=== PATIENT | male | born 1995 | race Caucasian/White ===

== ENCOUNTER 2017-12-10 02:37 | Emergency (ER) | payer MEDICAID ==
[2017-12-10] MEDS ORDERED: Ondansetron 4 MG Tab.DIS PO ONE (03:11)
[2017-12-10] MEDS ORDERED: Ketorolac 60 MG/2 ML SDV IM ONE (03:12)
--- NOTE | 2017-12-10 03:47 | EDM.PDOC ---
ED HPI GENERAL MEDICAL PROBLEM - General Chief Complaint: Drug or Alcohol Abuse Stated Complaint: [place] Time Seen by Provider: 12/10/17 03:20 Source of Information: Reports: Patient, EMS, RN History Limitations: Reports: Intoxication - History of Present Illness INITIAL COMMENTS - FREE TEXT/NARRATIVE: 22 yo male while intoxicated fell down some stairs hitting head. Was mumbling initially when his girlfriend caught up to him at the bottom of the stairs. EMS transported with stable vitals. Emesis x 1 on arrival here in the ER. Complains also of dental pain. Is on no meds. Self-limited bloody nose noted by EMS, as well as a forehead contusion. LOC is not clear. Onset: Today Onset Date: 12/10/17 Onset Time: 02:30 Duration: Minutes:, Improving Location: Reports: Head, Face Quality: Reports: Ache Severity: Moderate Improves with: Reports: Other (? time) Worsens with: Reports: None Context: Reports: Trauma Associated Symptoms: Reports: Nausea/Vomiting. 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: Reports: Other (see below) (none) denies pain Pain Score (Numeric/FACES): 0 teeth pain Pain Score (Numeric/FACES): 6 - Related Data Allergies Allergy/AdvReac Type Severity Reaction Status Date / Time hydrocodone Allergy Cannot Verified 12/10/17 02:48 Remember Home Meds: Home Meds Amoxicillin 875 mg PO BID #14 tab 12/10/17 [Rx] Past Medical History Gastrointestinal History: Reports: Chronic Diarrhea Neurological History: Reports: Concussion Social & Family History - Tobacco Use Smoking Status *Q: Never Smoker - Caffeine Use Caffeine Use: Reports: Soda - Recreational Drug Use Recreational Drug Use: Yes Drug Use in Last 12 Months: Yes Recreational Drug Type: Reports: Xanax Recreational Drug Use Frequency: Daily ED ROS GENERAL - Review of Systems Review Of Systems: See Below Constitutional: Reports: No Symptoms HEENT: Reports: Nosebleed (resolved on arrival.), Other (Bad tooth on R mandible ) Respiratory: Reports: No Symptoms Cardiovascular: Reports: No Symptoms GI/Abdominal: Reports: Nausea, Vomiting (x 1) : Reports: No Symptoms Musculoskeletal: Reports: Other (R cheek bone numb, throb over R eyebrow) Skin: Reports: No Symptoms Neurological: Reports: Confusion (Doesn't remember falling, otherwise is fully alert.), Paresthesia (R cheek area). Denies: Dizziness, Headache, Seizure, Tremors, Trouble Speaking, Weakness, Change in Speech Psychiatric: Reports: No Symptoms ED EXAM, HEAD INJURY - Physical Exam Exam: See Below Exam Limited By: No Limitations General Appearance: Alert, WD/WN, No Apparent Distress Head: Facial Abrasions, Facial Swelling (R eyebrow area with slight swelling. ) , Facial Tenderness (R cheek area mildly tender) Nexus Criteria: Evidence of Intoxication (no slurred speech, fully cooperative) . No: Posterior, Midline Cervical Tenderness, Altered Level of Consciousness, Focal Neurological Deficit Eyes: Bilateral Eye: Normal Inspection, PERRL, Other (No diplopia on lateral gaze) Ears: Normal External Exam, Normal Canal, Hearing Grossly Normal, Normal TMs Nose: Normal Inspection, Normal Mucousa, No Blood Throat/Mouth: Normal Inspection, Normal Lips, Normal Oropharynx, Normal Voice, No Airway Compromise, Other (No dental injuries, has a single bad tooth(molar) R mandible, L maxillary molar is somewhat loose. ) Neck: Non-Tender, Full Range of Motion, Normal Inspection Respiratory: No Respiratory Distress, Lungs Clear, Normal Breath Sounds, No Accessory Muscle Use Cardiovascular: Regular Rate, Rhythm GI/Abdominal Exam: Normal Bowel Sounds, Soft, Non-Tender, No Distention Back Exam: Normal Inspection, Full Range of Motion. 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 Patient was observed in the ER for 4 hrs and remained a Glasc[place] of 15 and had no additional emesis. Discharged in the care of his girlfriend and grandmother with head injury instructions. Last Recorded V/S: Last Vital Signs Temp 35.4 C 12/10/17 06:18 Pulse 103 H 12/10/17 06:18 Resp 16 12/10/17 06:18 BP 126/61 12/10/17 06:18 Pulse Ox 94 L 12/10/17 06:18 - Orders/Labs/Meds Orders: Active Orders 24 hr Category Date Time Status Head wo Cont [CT] Stat Exams 12/10/17 03:10 Taken Meds: Medications Discontinued Medications Generic Name Dose Route Start Last Admin Trade Name Adarsh PRN Reason Stop Dose Admin Amoxicillin 875 mg 12/10/17 04:55 12/10/17 06:18 Amoxil PO 12/10/17 04:56 875 mg ONETIME ONE Administration Ketorolac Tromethamine 60 mg 12/10/17 03:12 12/10/17 03:20 Toradol IM 12/10/17 03:13 60 mg ONETIME ONE Administration Ondansetron HCl 4 mg 12/10/17 03:11 12/10/17 03:16 Zofran Odt PO 12/10/17 03:12 4 mg ONETIME ONE Administration - Radiology Interpretation Free Text/Narrative:: Head CT scan-(radiology interpretation) ? small subdural hematoma vs. L tentorial thickening. comminuted , non-displaced fracture of the roof of the L orbit and R ethmoid air cells. CT Results Date: 12/10/17 CT Results Time: 03:50 Departure - Departure Time of Disposition: 06:50 Disposition: Home, Self-Care 01 Condition: Fair Clinical Impression: Loose tooth due to trauma Alcohol intoxication Qualifiers: Complication of substance-induced condition: with unspecified complication Qualified Code(s): F10.929 - Alcohol use, unspecified with intoxication, unspecified Concussion Qualifiers: Encounter type: initial encounter Loss of consciousness presence/duration: without LOC Qualified Code(s): S06.0X0A - Concussion without loss of consciousness, initial encounter Orbital fracture Qualifiers: Encounter type: initial encounter Fracture type: closed Qualified Code(s): S02.80XA - Fracture of other specified skull and facial bones, unspecified side , initial encounter for closed fracture Fracture of ethmoid sinus Qualifiers: Encounter type: initial encounter Fracture type: closed Qualified Code(s): S02.19XA - Other fracture of base of skull, initial encounter for closed fracture - Discharge Information Prescriptions: Amoxicillin 875 mg PO BID #14 tab Referrals: PCP,None [Primary Care Provider] - Forms: ED Department Discharge - My Orders Last 24 Hours: My Active Orders 12/10/17 03:10 Head wo Cont [CT] Stat - Assessment/Plan Last 24 Hours: My Active Orders 12/10/17 03:10 Head wo Cont [CT] Stat
[2017-12-10] MEDS ORDERED: Amoxicillin 875 MG Tab PO ONE (04:55)
== END 2017-12-10 06:57 | disposition home or self-care (01) ==
LOC: JP.ED 02:37
DX: S06.0X0A Concussion without loss of consciousness, initial encounter (principal); S02.19XA Other fracture of base of skull, initial encounter for closed fracture; Z88.5 Allergy status to narcotic agent; F10.129 Alcohol abuse with intoxication, unspecified; W10.9XXA Fall (on) (from) unspecified stairs and steps, initial encounter; K08.89 Other specified disorders of teeth and supporting structures
CPT/HCPCS: 70450; 96372; 99284; A9270; J1885

== ENCOUNTER 2017-12-11 01:00 | Emergency (ER) | payer MEDICAID ==
[2017-12-11] MEDS ORDERED: Ondansetron 4 MG Tab.DIS PO ONE (01:34)
[2017-12-11] MEDS ORDERED: Acetaminophen 500 MG Tab PO ONE (01:43)
--- NOTE | 2017-12-11 01:43 | EDM.PDOC ---
ED HPI GENERAL MEDICAL PROBLEM - General Chief Complaint: Gastrointestinal Problem Stated Complaint: VOMITING / HEAD PAIN Time Seen by Provider: 12/11/17 01:34 Source of Information: Reports: Patient, Old Records History Limitations: Reports: No Limitations - History of Present Illness INITIAL COMMENTS - FREE TEXT/NARRATIVE: 22 yo male was seen here last night for a head injury as a result of a fall down some stairs while intoxicated. A CT scan showed facial fractures and he was dx with a concussion. He did have some nausea and vomited once in the ER, but it was not clear if the vomiting was from the head injury or the alcohol. He got one dose of Zofran here in the ER and did not experience nausea again until about 5:30 pm 12/10/17. He was not sent home with an antiemetic and now returs with the complaint mainly of nausea and vomiting. He last took acetaminophen about 1930h tonight. He has local pain over his R eyebrow where he has his facial fx and otherwise has no JUDD unless he coughs. He is really not dizzy with standing. Has no photophobia, ataxia, or fever. He has some blood from his nose at times, but no clear fluid. The blood is not a large amount or bright red. He reports no neck pain. Is very alert now, but admits he has amnesia to the events last night from shortly after he arrived at the bar until shortly before he left the ER this morning. Onset: Gradual Onset Date: 12/10/17 Onset Time: 17:30 Duration: Waxing/Waning Location: Reports: Head (nausea from head injury with vomiting.) Quality: Reports: Ache Severity: Moderate Improves with: Reports: Medication Worsens with: Reports: Other (coughing) Context: Reports: Trauma Associated Symptoms: Reports: Nausea/Vomiting, Other (R eyebrow area pain, mild throbbing.). 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 ago.) right eye Pain Score (Numeric/FACES): 6 - Related Data Allergies Allergy/AdvReac Type Severity Reaction Status Date / Time hydrocodone Allergy Cannot Verified 12/11/17 01:20 Remember Home Meds: Home Meds Amoxicillin 875 mg PO BID #14 tab 12/10/17 [Rx] Past Medical History Gastrointestinal History: Reports: Chronic Diarrhea Neurological History: Reports: Concussion Social & Family History - Tobacco Use Smoking Status *Q: Never Smoker - Caffeine Use Caffeine Use: Reports: Soda - Recreational Drug Use Recreational Drug Use: Yes Drug Use in Last 12 Months: Yes Recreational Drug Type: Reports: Marijuana/Hashish Recreational Drug Use Frequency: Daily ED ROS GENERAL - Review of Systems Review Of Systems: See Below Constitutional: Reports: No Symptoms HEENT: Reports: Nosebleed (intermittent, not severe. ), Other (R eyebrow pain). Denies: Ear Discharge, Ear Pain, Nose Pain, Rhinitis, Throat Pain, Throat Swelling Respiratory: Reports: No Symptoms Cardiovascular: Reports: No Symptoms GI/Abdominal: Reports: Nausea, Vomiting. Denies: Abdominal Pain, Black Stool, Bloody Stool, Constipation, Diarrhea, Hematemesis, Hematochezia : Reports: No Symptoms Musculoskeletal: Reports: No Symptoms Skin: Reports: Bruising (R eye area) Neurological: Reports: Headache (more eyebrow area pain than generalized JUDD.) Psychiatric: Reports: No Symptoms ED EXAM, HEAD INJURY - Physical Exam Exam: See Below Exam Limited By: No Limitations General Appearance: Alert, WD/WN, No Apparent Distress Head: Facial Ecchymosis Nexus Criteria: No: Posterior, Midline Cervical Tenderness, Evidence of Intoxication, Altered Level of Consciousness, Focal Neurological Deficit Eyes: Bilateral Eye: EOMI, Normal Inspection, PERRL Ears: Normal External Exam, Normal Canal, Hearing Grossly Normal, Normal TMs Nose: Normal Inspection, Normal Mucousa, No Blood (Blew nose and there was no blood at all.) Throat/Mouth: Normal Inspection, Normal Lips, Normal Oropharynx, Normal Voice, No Airway Compromise Neck: Non-Tender, Full Range of Motion, Normal Alignment Respiratory: No Respiratory Distress, Lungs Clear, Normal Breath Sounds Cardiovascular: Regular Rate, Rhythm, No Edema GI/Abdominal Exam: Normal Bowel Sounds, Soft, Non-Tender, No Distention Back Exam: Normal Inspection. 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, No Motor/Sensory Deficits, Alert, Normal Mood/Affect, Oriented x 3 Skin: Normal Color, Warm/Dry - [place] Coma Score Best Eye Response ([place]): (4) Open Spontaneously Best Verbal Response ([place]): (5) Oriented Best Motor Response ([place]): (6) Obeys Commands [place] Total: 15 Course - Vital Signs Last Recorded V/S: Last Vital Signs Temp 35.8 C 12/11/17 01:22 Pulse 91 12/11/17 01:22 Resp 18 12/11/17 01:22 BP 145/75 H 12/11/17 01:22 Pulse Ox 95 12/11/17 01:22 Orthostatic Blood Pressure [ 148/99 Standing] Orthostatic Blood Pressure [ 151/90 Sitting] Orthostatic Blood Pressure [ 145/79 Supine] - Orders/Labs/Meds Orders: Active Orders 24 hr Category Date Time Status Orthostatic Vital Signs [RC] ASDIRECTED Care 12/11/17 01:34 Ordered Meds: Medications Discontinued Medications Generic Name Dose Route Start Last Admin Trade Name Adarsh PRN Reason Stop Dose Admin Acetaminophen 1,000 mg 12/11/17 01:43 Tylenol Extra Strength PO 12/11/17 01:44 ONETIME ONE Ondansetron HCl 4 mg 12/11/17 01:34 12/11/17 01:38 Zofran Odt PO 12/11/17 01:35 4 mg ONETIME ONE Administration Departure - Departure Time of Disposition: 02:09 Disposition: Home, Self-Care 01 Condition: Good Clinical Impression: Nausea and vomiting Qualifiers: Vomiting type: unspecified Vomiting Intractability: non-intractable Qualified Code(s): R11.2 - Nausea with vomiting, unspecified Concussion Qualifiers: Encounter type: initial encounter Loss of consciousness presence/duration: without LOC Qualified Code(s): S06.0X0A - Concussion without loss of consciousness, initial encounter - Discharge Information Referrals: PCP,None [Primary Care Provider] - Forms: ED Department Discharge - My Orders Last 24 Hours: My Active Orders 12/11/17 01:34 Orthostatic Vital Signs [RC] ASDIRECTED - Assessment/Plan Last 24 Hours: My Active Orders 12/11/17 01:34 Orthostatic Vital Signs [RC] ASDIRECTED
== END 2017-12-11 02:22 | disposition home or self-care (01) ==
LOC: JP.ED 01:00
DX: S06.0X0A Concussion without loss of consciousness, initial encounter (principal); R11.2 Nausea with vomiting, unspecified; F10.129 Alcohol abuse with intoxication, unspecified; W10.9XXA Fall (on) (from) unspecified stairs and steps, initial encounter; Z88.5 Allergy status to narcotic agent
CPT/HCPCS: 99284; A9270